=== PATIENT | male | born 1945 | race Caucasian/White ===

== ENCOUNTER → 2019-05-06 | Day surgery (SDC) | payer MEDICARE ==
[2019-05-02 14:03] LABS: BASOPHILS # (AUTO) 0.1 (0.0-0.1); BASOPHILS % 0.7 % (0.0-1.0); EOSINOPHILS # (AUTO) 0.3 (0.0-0.4); EOSINOPHILS % 4.5 % (0.0-6.0); HEMATOCRIT 43.4 % (38.2-49.6); LYMPHOCYTES % 28.9 % (18.0-39.1); MEAN CORPUSCULAR HEMOGLOBIN 32.3 pg (28-32); MEAN CORPUSCULAR HGB CONC 34.6 g/dL (31-35); MEAN CORPUSCULAR VOLUME 93.5 fL (81-99); MONOCYTES # (AUTO) 0.7 (0.2-0.8); MONOCYTES % 9.5 % (4.4-11.3); NEUTROPHILS % 56.3 % (38.7-80.0); PLATELET COUNT 177 x10e3/uL (140-360); RED BLOOD COUNT 4.64 x10e6/uL (4.3-5.7)
[2019-05-02 14:23] LABS: ALANINE AMINOTRANSFERASE 17 IU/L (0-55); ALBUMIN 3.9 g/dL (3.5-5.0); ALKALINE PHOSPHATASE 53 IU/L (40-150); BLOOD UREA NITROGEN 9 mg/dL (7-26); BUN/CREATININE RATIO 8 (6-25); CALCIUM 9.2 mg/dL (8.4-10.2); CARBON DIOXIDE 23 mmol/L (22-29); CHLORIDE 109 mmol/L (98-107); CREATININE, SERUM 1.12 mg/dL (0.72-1.25); EST GLOMERULAR FILTRATION RATE > 60 ML/MIN (60-); GLUCOSE 99 mg/dL (74-118); SODIUM 140 mmol/L (136-145)
[~2019-05-06] VITALS: Ht 170.2 cm; Wt 83.0 kg
[2019-05-06] VITALS (9 sets, daily range): BP systolic 100–156; BP diastolic 60–82
[~2019-05-06] MED LIST: ALPRAZOLAM 0.5 MG TAB ONE; AMLODIPINE BESY10 MG PO; ASPIR 8181 MG PO; ASPIRIN 325 MG TAB ONE; ATENOLOL50 MG PO; ATORVASTATIN CA10 MG PO; BIVALRIUDIN 250 MG/VIAL VIAL IV ONE; DIPHENHYDRAMINE HCL 25 MG CAP ONE; FENTANYL CITRATE/PF 100MCG/2 ML INJ ONE; HEPARIN SOD/SOD CHLORIDE 2,000 ML ONE; HYDRALAZINE HCL25 MG PO; IBUPROFEN200 MG PO; IOPAMIDOL 370 MG/ML 200 ML INFUS..BTL INJ ONE; LIDOCAINE HCL 2% LOCAL 20 ML VIAL ONE; LISINOPRIL10 MG PO; METOPROLOL PO; METOPROLOL SUCC50 MG PO; MIDAZOLAM HCL 2 MG/2 ML VIAL ONE; ONE-DAILY MULT1 EACH PO; PRASUGREL 10 MG TAB ONE; SODIUM CHLORIDE 0.9% 1000ML 1,000 ML ONE; SODIUM CHLORIDE 0.9% 50ML 50 ML ONE; VERAPAMIL HCL 2.5 MG/ML 2 ML VIAL ONE
--- NOTE | 2019-05-06 14:58 | NUR ---
1458Received pt to room #9,bedside report received from Lino FOSTER. Alert oriented and appropriate, PERRLA, respirations even and unlabored to room air. Pulses x4 extremities equal and strong. Pedal pulses PT/DP X4 and Cap fill brisk < 3 sec. TR band down at 1730pm home at 1800pm. Skin warm and dry integrity appears D/I IV 20g to left hand at 100cchr presents healthy w/o s/s of infiltration or complaint. Abdomen soft and supple. pt offered toileting, denies need to urinate or defecate. No personal affects with patient. Family son at bedside. Pt and family verbalizes understanding of POC. Currently w/o complaint of pain or need. ds/radha
--- NOTE | 2019-05-06 17:30 | NUR ---
1730 RADIAL Compression removal: Initial Cuff volume 13 cc 1730p -2cc Removed No hematoma/bleeding noted with normal neurovascular function. 1745p -5cc Removed No hematoma/ bleeding noted with normal neurovascular function. 1800p cc Removed No hematoma/bleeding noted with normal neurovascular function. Air removal completed. Stasis achieved sterile 2x2,Tegaderm, Coban dressing No hematoma, bleeding noted with normal neurovascular function. Wrist splint in place. Pt instructed on POC. Ds/Rn
--- NOTE | 2019-05-06 17:36 | Operative Report ---
DATE OF PROCEDURE: 05/06/2019 SURGEON: Andrea Jo MD INDICATION: Coronary artery disease, abnormal stress test. PROCEDURES PERFORMED: 1. Left heart catheterization, selective coronary angiography. 2. Stent placed in the distal left anterior descending artery. 3. Deployment of right wrist TR band. COMPLICATION: None. RECOMMENDATIONS: Staged intervention of the obtuse marginal artery. DESCRIPTION OF PROCEDURE: Access obtained in the right radial artery. A 5-Irish sheath was placed. Coronary angiography demonstrated heavily calcified vessel, 50% left main stenosis. The left anterior descending artery diffuse 30% to 50% distal vessel had 80% stenosis. Circumflex, diffuse 30% to 50% obtuse marginal branch 80%. Right coronary artery was dominant 30% to 50% stenosis. A decision was made to intervene on the left anterior descending artery. The patient received Angiomax and oral Effient and aspirin for anticoagulation. The left main was cannulated using an EBU 4.0 5-Irish guiding catheter. Short run-through wire was advanced across the left anterior descending artery lesion for support. Primary stent 2.5 x 12 mm Synergy deployed at 16 atmospheres. Excellent end result, less than 10% residual stenosis, KATHERIN-3 flow. No complications. Wire and guide sheath removed. TR band applied. The patient discharged home same day. Andrea Jo MD [facility] /[id number]
--- NOTE | 2019-05-06 18:00 | NUR ---
1800Pt meets DC criteria. rt tr band assessed for s/s of complication and presence of hematoma. Skin warm, dry, no discolor, and pulses present. IV removed from left arm Distal tip appears intact. VS WNL. Pt denies pain, sob, or need at this time. Family at XXXXX. Review of discharge paperwork and follow up instructions. verbalized understanding. Pt to wheelchair and transported to front of hospital. Transferred to private vehicle under own strength w/o incident with DC paperwork in hand. - ds/rn
== END | disposition home or self-care (01) ==
LOC: CATH LAB 11:20
PROVIDERS: ATTEND Internal Medicine Interventional Cardiology
DX: I25.118 Atherosclerotic heart disease of native coronary artery with other forms of angina pectoris (principal); R94.39 Abnormal result of other cardiovascular function study; Z01.812 Encounter for preprocedural laboratory examination; Z79.82 Long term (current) use of aspirin; Z95.810 Presence of automatic (implantable) cardiac defibrillator
CPT/HCPCS: 93454; C9600; 36415; 80053; 85025; 92928; 99152; C1769; C1874; C1887; J0583; J2001; J2250; J3010; J7030; Q9967

== ENCOUNTER 2024-04-16 19:50 | Inpatient (IN) | payer MEDICARE ==
[~2024-04-16] VITALS: Ht 170.2 cm; Wt 66.7 kg
[~2024-04-16 19:50] MED LIST changes: -ALPRAZOLAM 0.5 MG TAB ONE; -ASPIRIN 325 MG TAB ONE; -BIVALRIUDIN 250 MG/VIAL VIAL IV ONE; -DIPHENHYDRAMINE HCL 25 MG CAP ONE; -FENTANYL CITRATE/PF 100MCG/2 ML INJ ONE; -HEPARIN SOD/SOD CHLORIDE 2,000 ML ONE; -IOPAMIDOL 370 MG/ML 200 ML INFUS..BTL INJ ONE; -LIDOCAINE HCL 2% LOCAL 20 ML VIAL ONE; -MIDAZOLAM HCL 2 MG/2 ML VIAL ONE; -PRASUGREL 10 MG TAB ONE; -SODIUM CHLORIDE 0.9% 1000ML 1,000 ML ONE; -SODIUM CHLORIDE 0.9% 50ML 50 ML ONE; -VERAPAMIL HCL 2.5 MG/ML 2 ML VIAL ONE
[2024-04-16] MEDS: SODIUM CHLORIDE 0.9% 500ML 500 ML IV ONE (20:11)
[2024-04-16 20:36] LABS: BASOPHILS # (AUTO) 0.1 (0.0-0.1); BASOPHILS % 0.3 % (0.0-1.0); EOSINOPHILS # (AUTO) 0.1 (0.0-0.4); EOSINOPHILS % 0.4 % (0.0-6.0); HEMATOCRIT 30.3 % (38.2-49.6); LYMPHOCYTES # (AUTO) 1.1 (1.0-3.2); LYMPHOCYTES % 5.6 % (18.0-39.1); MEAN CORPUSCULAR HEMOGLOBIN 29.2 pg (28-32); MEAN CORPUSCULAR HGB CONC 29.7 g/dL (31-35); MEAN CORPUSCULAR VOLUME 98.4 fL (81-99); MONOCYTES # (AUTO) 1.3 (0.2-0.8); MONOCYTES % 6.5 % (4.4-11.3); NEUTROPHILS # (AUTO) 17.1 (2.1-6.9); PLATELET COUNT 153 x10e3/uL (140-360); RED BLOOD COUNT 3.08 x10e6/uL (4.3-5.7); RED CELL DISTRIBUTION WIDTH 14.2 % (11.7-14.4); WHITE BLOOD COUNT 19.88 x10e3/uL (4.8-10.8)
[2024-04-16 20:50] LABS: ALBUMIN 3.1 g/dL (3.5-5.0); ALBUMIN/GLOBULIN RATIO 0.6 (0.8-2.0); BILIRUBIN,TOTAL 0.7 mg/dL (0.2-1.2); CALCIUM 9.5 mg/dL (8.4-10.2); CREATININE, SERUM 3.81 mg/dL (0.72-1.25)
[2024-04-16 20:56] LABS: TROPONIN I 0.012 ng/mL (0-0.300)
[2024-04-16] MEDS ORDERED: ONDANSETRON HCL INJ 2MG/ML 2ML 2 MG/ML VIAL IV PRN (21:15)
[2024-04-16 21:57] LABS: CLARITY,URINE CLOUDY (CLEAR); COLOR,URINE YELLOW (YELLOW); LEUKOCYTE ESTERASE ,URINE 2+ (NEGATIVE); NITRITE,URINE NEGATIVE (NEGATIVE); PH,URINE 6 (5 - 7)
[2024-04-16] MEDS: ASPIRIN 81 MG CHEW TAB PO ONE (21:57)
[2024-04-16] MEDS: SODIUM CHLORIDE 0.9% 1000ML 1,000 ML IV SCH (21:57)
[2024-04-16 21:58] LABS: BACTERIA,URINE MANY /HPF; BILIRUBIN,URINE NEGATIVE (NEGATIVE); EPITHELIAL CELLS,URINE FEW /LPF; GLUCOSE, URINE NEGATIVE (NEGATIVE); KETONES,URINE NEGATIVE (NEGATIVE); MUCUS,URINE MANY (RARE); PROTEIN,URINE DIPSTICK 1+ (NEGATIVE); RBC,URINE 21-50 /HPF (0-5); URINE UROBILINOGEN 0.2 mg/dL (0.2 - 1); WBC,URINE (MAN) >50 /HPF (0-5)
[2024-04-16] MEDS: SODIUM CHLORIDE 0.9% 1000ML 1,000 ML IV ONE (22:54)
[2024-04-17] VITALS (63 sets, daily range): BP systolic 85–124; BP diastolic 48–82; PULSE 45–118; RESP 12–22; TEMP 97.5–98.3; O2SAT 92–100
[2024-04-17] MEDS: NOREPINEPHRINE 8 MG/D5W 250 ML 250 ML IV SCH (01:26)
[2024-04-17 04:55] LABS: CREATINE KINASE 98 IU/L (30-200)
[2024-04-17 04:57] LABS: ALBUMIN 2.5 g/dL (3.5-5.0); ALBUMIN/GLOBULIN RATIO 0.7 (0.8-2.0); ANION GAP 13.6 mmol/L (8-16); BILIRUBIN,TOTAL 0.4 mg/dL (0.2-1.2); CREATININE, SERUM 3.47 mg/dL (0.72-1.25); POTASSIUM 4.6 mmol/L (3.5-5.1)
[2024-04-17 05:03] LABS: CALCIUM 7.9 mg/dL (8.4-10.2); TOTAL PROTEIN 6.2 g/dL (6.5-8.1)
[2024-04-17 05:04] LABS: TROPONIN I < 0.05 ng/mL (0.0-0.40)
[2024-04-17 05:37] LABS: BASOPHILS % 0.3 % (0.0-1.0); EOSINOPHILS # (AUTO) 0.1 (0.0-0.4); LYMPHOCYTES # (AUTO) 1.2 (1.0-3.2); LYMPHOCYTES % 10.3 % (18.0-39.1); MEAN CORPUSCULAR HEMOGLOBIN 29.7 pg (28-32); MEAN CORPUSCULAR VOLUME 99.1 fL (81-99); MONOCYTES # (AUTO) 0.8 (0.2-0.8); MONOCYTES % 6.6 % (4.4-11.3); NEUTROPHILS # (AUTO) 9.8 (2.1-6.9); NEUTROPHILS % 81.1 % (38.7-80.0); PLATELET COUNT 134 x10e3/uL (140-360); RED BLOOD COUNT 2.32 x10e6/uL (4.3-5.7); RED CELL DISTRIBUTION WIDTH 14.3 % (11.7-14.4); WHITE BLOOD COUNT 12.05 x10e3/uL (4.8-10.8)
[2024-04-17 05:42] LABS: HEMOGLOBIN 6.9 g/dL (14.0-18.0)
[2024-04-17] MEDS: MUPIROCIN 2% OINT 22 GM TUBE TOP SCH (08:28)
[2024-04-17] MEDS: SODIUM CHLORIDE 0.9% 250ML 250 ML IV ONE (08:28)
[2024-04-17] MEDS ORDERED: METOPROLOL SUCC50 MG PO (09:03)
[2024-04-17] MEDS ORDERED: ACETAMINOPHEN500 M1 PO (09:06)
[2024-04-17] MEDS ORDERED: FINASTERIDE5 MG PO (09:06)
[2024-04-17] MEDS ORDERED: FLOMAX0.4 MG PO (09:06)
[2024-04-17] MEDS ORDERED: CLOPIDOGREL75 MG PO (09:06)
[2024-04-17] MEDS ORDERED: ADCIRCA20 MG PO (09:06)
[2024-04-17] MEDS ORDERED: ZESTRIL40 MG PO (09:06)
[2024-04-17] MEDS: SODIUM BICARBONATE 8.4% VIAL 50 ML in SODIUM CHLORIDE 0.45% 1,000 ML IV ONE (11:00)
[2024-04-17 16:15] LABS: ALBUMIN 2.3 g/dL (3.5-5.0); ALBUMIN/GLOBULIN RATIO 0.6 (0.8-2.0); ANION GAP 12.4 mmol/L (8-16); BILIRUBIN,TOTAL 0.5 mg/dL (0.2-1.2); CALCIUM 8.1 mg/dL (8.4-10.2); CREATININE, SERUM 3.13 mg/dL (0.72-1.25); POTASSIUM 4.4 mmol/L (3.5-5.1); TOTAL PROTEIN 5.9 g/dL (6.5-8.1)
[2024-04-17 16:40] LABS: % IRON SATURATION 19 % (15-50); IRON 34 ug/dL (65-175); TOTAL IRON BINDING CAPACITY 178 ug/dL (261-478); TRANSFERRIN 127 mg/dL (174-364)
[2024-04-17 22:59] LABS: CREATINE KINASE 55 IU/L (30-200)
[2024-04-17 23:04] LABS: TROPONIN I < 0.030 ng/mL (0-0.300)
[2024-04-17 23:21] LABS: CREATINE KINASE 82 IU/L (30-200)
[2024-04-18] VITALS (61 sets, daily range): BP systolic 86–146; BP diastolic 51–100; PULSE 45–118; RESP 12–20; TEMP 97.6–98.2; O2SAT 95–100
[2024-04-18 06:52] LABS: BASOPHILS % 0.5 % (0.0-1.0); EOSINOPHILS # (AUTO) 0.1 (0.0-0.4); EOSINOPHILS % 1.5 % (0.0-6.0); HEMATOCRIT 26.5 % (38.2-49.6); HEMOGLOBIN 8.3 g/dL (14.0-18.0); LYMPHOCYTES % 16.6 % (18.0-39.1); MEAN CORPUSCULAR HEMOGLOBIN 28.8 pg (28-32); MEAN CORPUSCULAR HGB CONC 31.3 g/dL (31-35); MONOCYTES # (AUTO) 0.6 (0.2-0.8); NEUTROPHILS # (AUTO) 4.4 (2.1-6.9); NEUTROPHILS % 71.1 % (38.7-80.0); PLATELET COUNT 115 x10e3/uL (140-360); RED BLOOD COUNT 2.88 x10e6/uL (4.3-5.7); RED CELL DISTRIBUTION WIDTH 15.2 % (11.7-14.4); WHITE BLOOD COUNT 6.19 x10e3/uL (4.8-10.8)
[2024-04-18 07:16] LABS: ALBUMIN 2.4 g/dL (3.5-5.0); ALBUMIN/GLOBULIN RATIO 0.6 (0.8-2.0); ANION GAP 12.3 mmol/L (8-16); BILIRUBIN,TOTAL 0.3 mg/dL (0.2-1.2); CALCIUM 8.6 mg/dL (8.4-10.2); CREATININE, SERUM 2.81 mg/dL (0.72-1.25); POTASSIUM 4.3 mmol/L (3.5-5.1); TOTAL PROTEIN 6.1 g/dL (6.5-8.1)
[2024-04-18 08:08] LABS: TROPONIN I < 0.030 ng/mL (0-0.300)
[2024-04-18] MEDS ORDERED: TAMSULOSIN HCL 0.4 MG CAP PO SCH (09:00)
[2024-04-18] MEDS: SODIUM BICARBONATE 8.4% VIAL 50 ML in SODIUM CHLORIDE 0.45% 1,000 ML IV ONE (09:38)
[2024-04-18] MEDS: IRON SUCROSE 100 MG in SODIUM CHLORIDE 0.9% 100 ML IV SCH (09:39)
[2024-04-18] MEDS: SODIUM CHLORIDE FLUSH 10 ML SYR IV PRN (09:40)
[2024-04-18 10:14] LABS: FOLATE 2.1 ng/mL (7.0-15.4)
[2024-04-18] MEDS: ATORVASTATIN 40 MG TAB PO SCH (16:23)
[2024-04-18] MEDS: FINASTERIDE 5 MG TAB PO SCH (16:24)
[2024-04-19] VITALS (18 sets, daily range): BP systolic 98–130; BP diastolic 58–85; PULSE 53–100; RESP 14–23; TEMP 97.6–98.3; O2SAT 98–100
[2024-04-19 06:44] LABS: BASOPHILS % 0.5 % (0.0-1.0); EOSINOPHILS # (AUTO) 0.1 (0.0-0.4); EOSINOPHILS % 2.2 % (0.0-6.0); HEMATOCRIT 25.6 % (38.2-49.6); HEMOGLOBIN 8.2 g/dL (14.0-18.0); LYMPHOCYTES # (AUTO) 1.1 (1.0-3.2); LYMPHOCYTES % 17.9 % (18.0-39.1); MEAN CORPUSCULAR HEMOGLOBIN 29.2 pg (28-32); MEAN CORPUSCULAR VOLUME 91.1 fL (81-99); MONOCYTES # (AUTO) 0.7 (0.2-0.8); NEUTROPHILS % 66.9 % (38.7-80.0); PLATELET COUNT 114 x10e3/uL (140-360); RED BLOOD COUNT 2.81 x10e6/uL (4.3-5.7); RED CELL DISTRIBUTION WIDTH 14.8 % (11.7-14.4); WHITE BLOOD COUNT 5.99 x10e3/uL (4.8-10.8)
[2024-04-19 07:26] LABS: ALBUMIN 2.3 g/dL (3.5-5.0); ALBUMIN/GLOBULIN RATIO 0.6 (0.8-2.0); ANION GAP 12.2 mmol/L (8-16); BILIRUBIN,TOTAL 0.4 mg/dL (0.2-1.2); CALCIUM 8.4 mg/dL (8.4-10.2); CREATININE, SERUM 2.31 mg/dL (0.72-1.25); POTASSIUM 4.2 mmol/L (3.5-5.1); TOTAL PROTEIN 5.9 g/dL (6.5-8.1)
[2024-04-19] MEDS: CYANOCOBALAMIN 1,000 MCG TAB PO SCH (08:55)
[2024-04-19] MEDS: FOLIC ACID 1 MG TAB PO SCH (08:55)
[2024-04-19] MEDS ORDERED: LIDOCAINE 2% /EPINEPHRINE 20 ML SDV INJ ONE (16:18)
[2024-04-19] MEDS ORDERED: PROPOFOL IV EMULSION 10 MG/ML 20 ML VIAL ONE (16:19)
[2024-04-19] MEDS ORDERED: FENTANYL CITRATE/PF 100MCG/2 ML INJ ONE (16:38)
[2024-04-19] MEDS: ACETAMINOPHEN 1000 MG/100 ML IV ONE (17:18)
[2024-04-19] MEDS: ACETAMINOPHEN 1000 MG/100 ML 100 ML IV ONE (18:08)
[2024-04-20] VITALS (8 sets, daily range): BP systolic 92–123; BP diastolic 56–86; PULSE 70–106; RESP 16–18; TEMP 97.1–98.4; O2SAT 98–100
[2024-04-20 05:41] LABS: BASOPHILS % 0.4 % (0.0-1.0); EOSINOPHILS # (AUTO) 0.1 (0.0-0.4); EOSINOPHILS % 2.1 % (0.0-6.0); HEMATOCRIT 27.7 % (38.2-49.6); HEMOGLOBIN 8.4 g/dL (14.0-18.0); LYMPHOCYTES % 18.7 % (18.0-39.1); MEAN CORPUSCULAR HEMOGLOBIN 28.8 pg (28-32); MEAN CORPUSCULAR HGB CONC 30.3 g/dL (31-35); MEAN CORPUSCULAR VOLUME 94.9 fL (81-99); MONOCYTES # (AUTO) 0.7 (0.2-0.8); MONOCYTES % 12.9 % (4.4-11.3); NEUTROPHILS # (AUTO) 3.5 (2.1-6.9); NEUTROPHILS % 65.5 % (38.7-80.0); PLATELET COUNT 117 x10e3/uL (140-360); RED BLOOD COUNT 2.92 x10e6/uL (4.3-5.7); RED CELL DISTRIBUTION WIDTH 14.6 % (11.7-14.4); WHITE BLOOD COUNT 5.34 x10e3/uL (4.8-10.8)
[2024-04-20 06:11] LABS: ALBUMIN 2.3 g/dL (3.5-5.0); ALBUMIN/GLOBULIN RATIO 0.6 (0.8-2.0); BILIRUBIN,TOTAL 0.4 mg/dL (0.2-1.2); CALCIUM 8.5 mg/dL (8.4-10.2); CREATININE, SERUM 2.35 mg/dL (0.72-1.25)
[2024-04-20] MEDS: MEROPENEM 1 GM in SODIUM CHLORIDE 0.9% 100 ML IV SCH (12:23)
[2024-04-21] VITALS (8 sets, daily range): BP systolic 100–114; BP diastolic 59–67; PULSE 70–72; RESP 16–19; TEMP 97.3–98.2; O2SAT 99–100
[2024-04-21] MEDS: FOLIC ACID 1 MG TAB PO SCH (09:00)
[2024-04-21] MEDS: CYANOCOBALAMIN INJ 1,000 MCG/ML VIAL IM SCH (09:59)
[2024-04-22] VITALS (8 sets, daily range): BP systolic 105–125; BP diastolic 61–79; PULSE 70–91; RESP 16–19; TEMP 97.4–99.1; O2SAT 96–100
[2024-04-23] VITALS: BP 114/72; PULSE 70; RESP 18; TEMP 99; O2SAT 100
[2024-04-23 04:00] VITALS: BP 117/81; PULSE 70; RESP 18; TEMP 97.5; O2SAT 100
[2024-04-23 06:50] LABS: BASOPHILS # (AUTO) 0.1 (0.0-0.1); EOSINOPHILS # (AUTO) 0.5 (0.0-0.4); EOSINOPHILS % 10.1 % (0.0-6.0); HEMATOCRIT 27.6 % (38.2-49.6); HEMOGLOBIN 8.5 g/dL (14.0-18.0); LYMPHOCYTES # (AUTO) 1.2 (1.0-3.2); LYMPHOCYTES % 24.4 % (18.0-39.1); MEAN CORPUSCULAR HEMOGLOBIN 29.4 pg (28-32); MEAN CORPUSCULAR HGB CONC 30.8 g/dL (31-35); MEAN CORPUSCULAR VOLUME 95.5 fL (81-99); MONOCYTES # (AUTO) 0.8 (0.2-0.8); MONOCYTES % 16.1 % (4.4-11.3); NEUTROPHILS # (AUTO) 2.4 (2.1-6.9); NEUTROPHILS % 47.4 % (38.7-80.0); PLATELET COUNT 135 x10e3/uL (140-360); RED BLOOD COUNT 2.89 x10e6/uL (4.3-5.7); RED CELL DISTRIBUTION WIDTH 14.9 % (11.7-14.4); WHITE BLOOD COUNT 5.04 x10e3/uL (4.8-10.8)
[2024-04-23 07:15] LABS: ALBUMIN 2.3 g/dL (3.5-5.0); ALBUMIN/GLOBULIN RATIO 0.6 (0.8-2.0); ANION GAP 13.1 mmol/L (8-16); BILIRUBIN,TOTAL 0.4 mg/dL (0.2-1.2); CALCIUM 8.6 mg/dL (8.4-10.2); CREATININE, SERUM 2.52 mg/dL (0.72-1.25); MAGNESIUM 1.8 MG/DL (1.3-2.1); POTASSIUM 4.1 mmol/L (3.5-5.1); TOTAL PROTEIN 5.9 g/dL (6.5-8.1)
[2024-04-23 08:33] VITALS: BP 121/76; PULSE 69; RESP 17; TEMP 97.8; O2SAT 100
== END 2024-04-23 10:32 | disposition home or self-care (01) | DRG 682 ==
LOC: ER 19:55 → ERHOLD 21:10 → ICU 04-17 08:04 → MED/SURG 04-19 15:09
PROVIDERS: ADMIT Family Medicine; ATTEND Family Medicine
PROC: 05H533Z Insertion of Infusion Device into Right Subclavian Vein, Percutaneous Approach (ICD-10-PCS; 2024-04-16)
PROC: B546ZZA Ultrasonography of Right Subclavian Vein, Guidance (ICD-10-PCS; 2024-04-16)
PROC: 30233N1 Transfusion of Nonautologous Red Blood Cells into Peripheral Vein, Percutaneous Approach (ICD-10-PCS; 2024-04-17)
PROC: 0DB78ZX Excision of Stomach, Pylorus, Via Natural or Artificial Opening Endoscopic, Diagnostic (ICD-10-PCS; 2024-04-19)
PROC: 3E033XZ Introduction of Vasopressor into Peripheral Vein, Percutaneous Approach (ICD-10-PCS; 2024-04-19)
PROC: 0DB48ZX Excision of Esophagogastric Junction, Via Natural or Artificial Opening Endoscopic, Diagnostic (ICD-10-PCS; principal; 2024-04-19 16:41)
DX: N17.9 Acute kidney failure, unspecified (principal); E43 Unspecified severe protein-calorie malnutrition; I50.22 Chronic systolic (congestive) heart failure; N13.8 Other obstructive and reflux uropathy; Z16.12 Extended spectrum beta lactamase (ESBL) resistance; Z16.21 Resistance to vancomycin; E87.21 Acute metabolic acidosis; N13.6 Pyonephrosis; I95.9 Hypotension, unspecified; B96.5 Pseudomonas (aeruginosa) (mallei) (pseudomallei) as the cause of diseases classified elsewhere; B96.1 Klebsiella pneumoniae [K. pneumoniae] as the cause of diseases classified elsewhere; I11.0 Hypertensive heart disease with heart failure; R33.8 Other retention of urine; K22.70 Barrett's esophagus without dysplasia; K29.50 Unspecified chronic gastritis without bleeding; K20.90 Esophagitis, unspecified without bleeding; Q40.2 Other specified congenital malformations of stomach; K44.9 Diaphragmatic hernia without obstruction or gangrene; D50.0 Iron deficiency anemia secondary to blood loss (chronic); E53.8 Deficiency of other specified B group vitamins; E78.5 Hyperlipidemia, unspecified; I35.0 Nonrheumatic aortic (valve) stenosis; I25.10 Atherosclerotic heart disease of native coronary artery without angina pectoris; Z95.1 Presence of aortocoronary bypass graft; Z95.5 Presence of coronary angioplasty implant and graft; R63.4 Abnormal weight loss; Z68.23 Body mass index [BMI] 23.0-23.9, adult; Z71.3 Dietary counseling and surveillance; N40.1 Benign prostatic hyperplasia with lower urinary tract symptoms; Z95.810 Presence of automatic (implantable) cardiac defibrillator; Z95.2 Presence of prosthetic heart valve; Z79.899 Other long term (current) drug therapy; Z79.02 Long term (current) use of antithrombotics/antiplatelets; Z79.82 Long term (current) use of aspirin
CPT/HCPCS: 36415; 36555; 43239; 51700; 71045; 74176; 80053; 81001; 82550; 82607; 82746; 83540; 83605; 83735; 84466; 84484; 85025; 85045; 86850; 86900; 86920; 87040; 87086; 87186; 88305; 88342; 93005; 93306; 94760; 99252; 99284; J0696; J1756; J2004; J2185; J2470; J3420; J7030; J7040; J7050; P9016